=== PATIENT | female | born 1990 | race American Indian/Alaskan Native ===

== ENCOUNTER 2019-06-27 13:55 | Emergency (ER) | payer SELFPAY ==
[2019-06-27 14:00] VITALS: BP 117/77
--- NOTE | 2019-06-27 14:22 | Emergency Department Report ---
Blank Doc - Documentation Documentation: 29-year-old female that presents with pelvic cramping and vaginal bleeding. U nsure of . This initial assessment/diagnostic orders/clinical plan/treatment(s) is/are subject to change based on patient's health status, clinical progression and re- assessment by fellow clinical providers in the ED. Further treatment and workup at subsequent clinical providers discretion. Patient/guardians urged not to elope from the ED as their condition may be serious if not clinically assessed and managed. Initial orders include: 1- Patient sent to [facility] for further evaluation and treatment 2- labs 3- UA
--- NOTE | 2019-06-27 16:13 | Emergency Department Report ---
ED General Adult HPI - General Chief complaint: Vaginal Bleeding Stated complaint: POSS MISCARRAGE Time Seen by Provider: 06/27/19 14:20 Source: patient Mode of arrival: Ambulatory Limitations: No Limitations - History of Present Illness Initial comments: 29-year-old female presenting with chief complaint of vaginal bleeding. She states that she is concerned that she has having a miscarriage. When asked if she has taken a test she states no. Last period was 3 weeks ago, she has had a prior tubal ligation. She denies any abdominal pain but states of some cramping. Denies any fevers, nausea, vomiting or any other systemic complaints. Denies any vaginal discharge and denies any concern for STI. -: Gradual, days(s) (2) Location: pelvis Radiation: non-radiation Severity scale (0 -10): 2 Quality: aching Consistency: intermittent Improves with: none Worsens with: none Associated Symptoms: denies other symptoms Treatments Prior to Arrival: none - Related Data Home Medications Medication Instructions Recorded Confirmed Last Taken Vits96/Iron Fum/Folic 1 tab PO DAILY 12/07/13 02/07/14 02/07/14 08:00 [ Tablet] 1 tablet Previous Rx's Medication Instructions Recorded Last Taken Type HYDROcodone/APAP 5-325 [Bryan 1 each PO Q6H PRN #20 tablet 02/08/14 Unknown Rx 5-325 mg TAB] Allergies Allergy/AdvReac Type Severity Reaction Status Date / Time No Known Allergies Allergy Verified 01/17/14 15:23 ED Review of Systems ROS: Stated complaint: POSS MISCARRAGE Other details as noted in HPI Comment: All other systems reviewed and negative Genitourinary: as per HPI ED Past Medical Hx - Past Medical History Hx Hypertension: No Hx Congestive Heart Failure: No Hx Diabetes: No Hx Deep Vein Thrombosis: No Hx Renal Disease: No Hx Sickle Cell Disease: No Hx Seizures: No Hx Asthma: No Hx COPD: No Hx HIV: No - Surgical History Past Surgical History?: Yes Additional Surgical History: TUBLIGATION 2016 - Social History Smoking Status: Current Some Day Smoker Substance Use Type: Alcohol - Medications Home Medications: Home Medications Medication Instructions Recorded Confirmed Last Taken Type Vits96/Iron Fum/Folic 1 tab PO DAILY 12/07/13 02/07/14 02/07/14 08:00 History [ Tablet] 1 tablet HYDROcodone/APAP 5-325 [Bryan 1 each PO Q6H PRN #20 tablet 02/08/14 Unknown Rx 5-325 mg TAB] ED Physical Exam - General Limitations: No Limitations General appearance: alert, in no apparent distress - Head Head exam: Present: atraumatic, normocephalic - Eye Eye exam: Present: normal appearance - ENT ENT exam: Present: mucous membranes moist - Neck Neck exam: Present: normal inspection - Respiratory Respiratory exam: Present: normal lung sounds bilaterally. Absent: respiratory distress - Cardiovascular Cardiovascular Exam: Present: regular rate, normal rhythm. Absent: systolic murmur, diastolic murmur, rubs, gallop - GI/Abdominal GI/Abdominal exam: Present: soft, normal bowel sounds. Absent: distended, tenderness, guarding, rebound - Extremities Exam Extremities exam: Present: normal inspection - Back Exam Back exam: Present: normal inspection - Neurological Exam Neurological exam: Present: alert, oriented X3 - Psychiatric Psychiatric exam: Present: normal affect, normal mood - Skin Skin exam: Present: warm, dry, intact, normal color. Absent: rash ED Course Vital Signs 06/27/19 06/27/19 13:58 13:59 Temperature 98.4 F Pulse Rate 71 Respiratory 20 Rate Blood Pressure 117/77 O2 Sat by Pulse 100 Oximetry ED Medical Decision Making - Lab Data Result diagrams: 06/27/19 16:17 Lab Results 06/27/19 06/27/19 06/27/19 Range/Units 16:17 16:17 16:17 WBC 6.0 (4.5-11.0) K/mm3 RBC 4.14 (3.65-5.03) M/mm3 Hgb 10.4 (10.1-14.3) gm/dl Hct 32.1 (30.3-42.9) % MCV 78 L (79-97) fl MCH 25 L (28-32) pg MCHC 32 (30-34) % RDW 16.5 H (13.2-15.2) % Plt Count 217 (140-440) K/mm3 Lymph % (Auto) 35.1 H (13.4-35.0) % [place] % (Auto) 7.6 H (0.0-7.3) % Eos % (Auto) 3.2 (0.0-4.3) % Baso % (Auto) 1.0 (0.0-1.8) % Lymph # 2.1 (1.2-5.4) K/mm3 [place] # 0.5 (0.0-0.8) K/mm3 Eos # 0.2 (0.0-0.4) K/mm3 Baso # 0.1 (0.0-0.1) K/mm3 Seg Neutrophils % 53.1 (40.0-70.0) % Seg Neutrophils # 3.2 (1.8-7.7) K/mm3 HCG, Quant < 2 (0-4) mIU/mL Blood Type O POSITIVE - Medical Decision Making 29-year-old female presenting with complaints of possible miscarriage. She states she has not taken a test. Exam is normal. We will check labs including hCG quantitative. hCG quantitative is negative. Patient declines pelvic exam or further work-up. Advised PCP or [facility] follow-up. - Differential Diagnosis Miscarriage, ectopic , menstrual cycle Critical care attestation.: If time is entered above; I have spent that time in minutes in the direct care of this critically ill patient, excluding procedure time. ED Disposition Clinical Impression: Vaginal bleeding Disposition: DC- TO HOME OR SELFCARE Is pt being admited?: No Condition: Good Instructions: Menstruation (ED) Referrals: PRIMARY CARE, [Primary Care Provider] - 3-5 Days SEBAS VALENTIN MD [Staff Physician] - 3-5 Days Time of Disposition: 17:14
[2019-06-27 16:44] LABS: Basophils # (Auto) 0.1 K/mm3 (0.0-0.1); Eosinophils # (Auto) 0.2 K/mm3 (0.0-0.4); Eosinophils % (Auto) 3.2 % (0.0-4.3); Hematocrit 32.1 % (30.3-42.9); Hemoglobin 10.4 gm/dl (10.1-14.3); Lymphocytes # (Auto) 2.1 K/mm3 (1.2-5.4); Lymphocytes % (Auto) 35.1 % (13.4-35.0); Mean Corpuscular HGB Conc 32 % (30-34); Mean Corpuscular Volume 78 fl (79-97); Monocytes # (Auto) 0.5 K/mm3 (0.0-0.8); Monocytes % (Auto) 7.6 % (0.0-7.3); Platelet Count 217 K/mm3 (140-440); Red Blood Count 4.14 M/mm3 (3.65-5.03); Red Cell Distribution Width 16.5 % (13.2-15.2)
[2019-06-27 18:43] LABS: Bilirubin,Urine NEG (Negative); Blood,Urine LG (Negative); Color,Urine Yellow (Yellow); Mucus,Urine FEW /HPF; Protein,Urine <15 mg/dL mg/dL (Negative); Urobilinogen,Urine < 2.0 mg/dL (<2.0)
[2019-06-27 18:44] LABS: RBC,Urine > 182.0 /HPF (0.0-6.0)
== END 2019-06-27 17:23 | disposition home or self-care (01) ==
LOC: ED 13:55
DX: O20.9 Hemorrhage in early pregnancy, unspecified (principal); O99.331 Smoking (tobacco) complicating pregnancy, first trimester; Z3A.01 Less than 8 weeks gestation of pregnancy; Z79.899 Other long term (current) drug therapy; Z98.51 Tubal ligation status
CPT/HCPCS: 36415; 81001; 84702; 85025; 86900; 86901; 99283